=== PATIENT | female | born 1995 | race Caucasian/White ===

== ENCOUNTER → 2016-10-09 | Outpatient (CLI) | payer BC ==
[2016-10-09 18:41] LABS: PREG INTERNAL NEGATIVE QC NEG CLEAR BACKGROUND; PREG INTERNAL POSITIVE QC POS CONTROL LINE
== END | disposition home or self-care (01) ==
LOC: C.LABSPEC 11:47
PROVIDERS: ATTEND Family Medicine
DX: N91.2 Amenorrhea, unspecified (principal)

== ENCOUNTER → 2017-09-25 | Outpatient (CLI) | payer OTHER ==
[2017-09-25 13:36] LABS: ALBUMIN 3.5 gm/dl (3.4-5.0); ALT/SGPT 24 U/L (12-78); AST/SGOT 16 U/L (15-37); BLOOD UREA NITROGEN 7 mg/dl (7-18); CALCIUM 8.6 mg/dl (8.5-10.1); CARBON DIOXIDE 23 mmol/L (21-32); CREATININE 0.58 mg/dl (0.60-1.20); GLUCOSE 84 mg/dl (70-99); SODIUM 138 mmol/L (136-145)
[2017-09-25 13:47] LABS: ALKALINE PHOSPHATASE 83 U/L (45-117); TOTAL PROTEIN 7.7 gm/dl (6.4-8.2)
== END | disposition home or self-care (01) ==
LOC: C.LABSPEC 12:37
PROVIDERS: ATTEND Family Medicine
DX: R42 Dizziness and giddiness (principal)

== ENCOUNTER 2019-06-03 07:36 | Inpatient (IN) ==
[2019-06-03] MEDS ORDERED: OXYTOCIN 30 UNITS/500 ML BAG IV PRN ×2 (09:31→13:49)
[2019-06-03] MEDS ORDERED: LACTATED RINGER'S 1,000 ML IV PRN (09:31)
--- NOTE | 2019-06-03 09:43 | History & Physical Report ---
Date of Service June 03, 2019 Assessment & Plan (1) : 24 yo @ 38w0d, here for induction of labor, complicated by gastric bypass, iron deficiency, hypothyroidism, depression and fetus with IUGR IOL - VSS, SVE: /-2 soft, posterior - GBS - , Blood Type O+ - Pain well controlled - plan for AROM Fetus - IUGR 7%ile @ 32 weeks - good movement - Category 1 tracing Iron deficiency - currently on oral iron - Hgb 10.3 (8/) - check H&H postoperatively (2) Supervision of high risk , antepartum: (3) IUGR (intrauterine growth restriction) affecting care of mother: (4) complicated by previous gastric bypass, antepartum: History of Present Illness Primary Care Provider: Pepito Martinez Ms. Loomis is a 24-year-old . complicated by gastric bypass, IUGR 7%ile @ 32 weeks. She has not had any loss of fluid, she did notice some mucus and blood that started yesterday morning. The bleeding is a mix of bright and dark blood. She has noticed good movement. She is here for planned induction at 38 weeks. She is feeling some of her contractions. Partner's name is Bud. GBS: negative Allergies Allergy/AdvReac Type Severity Reaction Status Date / Time amoxicillin Allergy Verified 06/02/19 11:56 Home Medications Home Medications Medication Instructions Recorded Confirmed Type calcium carbonate PO 03/21/19 06/02/19 History cetirizine 10 mg capsule PO cap 03/21/19 06/02/19 History cyanocobalamin (vit B-12) 1,000 1,000 mcg .ROUTE .COMPLEX PRN ea 03/21/19 06/02/19 History mcg/mL injection kit ferrous gluconate 240 mg (27 mg PO tab 03/21/19 06/02/19 History iron) tablet folic acid 800 mcg tablet PO tab 03/21/19 06/02/19 History Patient History Medical History complicated by previous gastric bypass, antepartum (Acute) Shingles 2010 Spitz nevus of right thigh 02/2019 H/O arthritis H/O: depression H/O: hypothyroidism History of varicella Surgical History S/P LEEP of cervix S/P gastric bypass S/P tonsillectomy S/P wisdom tooth extraction Family History Grandfather (Maternal) Heart disease Unknown Breast cancer Grandmother (Maternal) Osteoporosis Social History Preferred Language: Tongan Communication Ability: Effective Beliefs That Will Affect Care: None marital status: Single Current Living Situation: Significant Other Current Living Situation Comment: Fide's mother Other Information That Helps Us Care for You: No Feels Safe at Home: Yes Safety Concerns: Feels Safe At This Time Smoking Status: Never smoker Hx Alcohol Use: No Hx Substance Use: No Review of Systems Denies fever, chills, sweats Denies shortness of breath, difficulty breathing, chest pain, palpitations, chest pressure. Denies breast pain. Denies dysuria. Denies headache. Physical Exam Physical Exam: General: Alert, oriented. No acute distress. Cardiac: Regular rate and rhythm, no murmurs/rubs/gallops. Respiratory: Clear to auscultation anterior and posteriorly, no wheeze s/rales/rhonchi. No increased work of breathing. Symmetrical chest rise. No respiratory distress. Abdomen: Soft, nontender, nondistended. Bowel sounds present. Lower Extremities: No lower extremity edema or swelling. No deep calf pain. Allegra's negative bilaterally SVE: 4/90/-2 soft, posterior, EFW 5-6 lbs Results & Data Vital Signs (Past 12 Hours) Vital Signs Temp Pulse Resp BP 06/03/19 07:50 36.7 C 20 06/03/19 07:48 109 H 108/74 Monitoring External Monitor - baseline HR 150 - no late decelerations, no variable decelerations - category 1 tracing Tocodynamometer - contractions approximately every 5-10 minutes - approximately 80 MVU Supervising Physician Co-Signing Physician Notes Resident Physician Supervision Note: I interviewed and examined the patient. Discussed with Dr. Alexa Ruff PGY-1 and agree with findings and plan as documented in the note. Any exceptions or clarifications are listed here: [None] Documented By: Ana Luo MD, FACOG Resident Activity Tracking Resident Involvement: Resident Care Provided Care Provided: Adult Hospital Medicine
[2019-06-03 10:02] LABS: Hematocrit (blood only) 36.1 % (37-47); Hemoglobin 11.3 g/dL (12.0-16.0); Mean Corpuscular Hemoglobin 25.6 pg (25-34); Mean Corpuscular Volume 81.9 fL (80-100); Mean Platelet Volume 10.7 fL (7.4-10.4); Platelet Count 330 K/uL (130-400); RDW Coefficient of Variation 20.6 % (11.5-14.5); RDW Standard Deviation 57.4 fL (36.4-46.3); Red Blood Count 4.41 M/uL (4.2-5.4); White Blood Count 6.76 K/uL (4.8-10.8)
[2019-06-03 10:06] LABS: Mean Corpuscular Hgb Conc 31.3 g/dL (32-36)
[2019-06-03] MEDS ORDERED: OXYCODONE/ACETAMINOPHEN 5mg/325mg TAB PO PRN (13:49)
[2019-06-03] MEDS ORDERED: BENZOCAINE 20% AER SPR 82.5 GM CAN EXT PRN (13:49)
[2019-06-03] MEDS ORDERED: HYDROCORTISONE ACETATE 25 MG SUPP PR PRN (13:49)
[2019-06-03] MEDS ORDERED: bisacodyL 10 MG SUPP PR PRN (13:49)
[2019-06-03] MEDS ORDERED: DIPHTHERIA/TETANUS/PERTUSSIS 0.5 ML SYR/VIAL IM ONE (13:49)
[2019-06-03] MEDS ORDERED: SUPERCREAM 0.870% 15 GM JAR EXT PRN (13:49)
[2019-06-03] MEDS ORDERED: ACETAMINOPHEN 325 MG TAB PO PRN (13:49)
--- NOTE | 2019-06-03 14:32 | Delivery Summary ---
DATE OF OPERATION: 06/03/2019 The patient is a 24-year-old 2, para 0-0-1-0 white female who has an EDC of 06/17/2019, who presents at 38 weeks for induction of labor because of IUGR first discovered at 32 weeks' gestation. She presented to labor and delivery at 4 cm dilated and 90% effaced. Membranes were ruptured for meconium-stained fluid. She progressed without Pitocin augmentation to full dilation. She pushed effectively over intact perineum for delivery of a viable male . Rest of the was delivered easily and was placed on the mother's abdomen for further attention and drying. There was vigorous crying and the was moving all 4 limbs. The cord was clamped and cut after 30 seconds. After cord blood was obtained, the placenta was expressed intact with a 3-vessel cord. A first-degree perineal laceration was repaired with 3-0 chromic in the usual fashion using 1% lidocaine as an anesthetic. The patient had an unmedicated . Estimated blood loss was 200 mL. Mother and infant were doing well post-delivery. Post- bleeding was controlled with dilute Pitocin. I attest to the content of the Intraoperative Record and any orders documented therein. Any exception s are noted below.
[2019-06-03] MEDS: ACETAMINOPHEN SOL 650 MG/20.3 ML UDC PO PRN ×2 (15:08→21:06)
[2019-06-03] MEDS: DOCUSATE SODIUM SYRUP 100 MG/10 ML UDC PO SCH (19:38)
[2019-06-03] MEDS ORDERED: DOCUSATE SODIUM 100 MG CAP PO SCH (21:00)
[2019-06-04] MEDS: ACETAMINOPHEN SOL 650 MG/20.3 ML UDC PO PRN ×4 (03:50→23:35)
[2019-06-04 06:43] LABS: Hemoglobin 10.3 g/dL (12.0-16.0); Mean Corpuscular Hemoglobin 25.7 pg (25-34); Mean Corpuscular Hgb Conc 31.2 g/dL (32-36); Mean Corpuscular Volume 82.3 fL (80-100); Mean Platelet Volume 10.4 fL (7.4-10.4); Platelet Count 289 K/uL (130-400); RDW Coefficient of Variation 21.3 % (11.5-14.5); RDW Standard Deviation 60.8 fL (36.4-46.3); Red Blood Count 4.01 M/uL (4.2-5.4); White Blood Count 9.43 K/uL (4.8-10.8)
--- NOTE | 2019-06-04 06:46 | Obstetrical Progress Note ---
Date of Service June 04, 2019 Assessment & Plan (1) : 24 yo @ 38w0d s/p VD @ 38w1d PPD#1 - GBS - , Blood Type O+ - feels well today. Eating well, voiding well, ambulating well. - Pain well controlled. - Routine post care - After discharge will have [address] Luo. Iron deficiency - currently on oral iron - Hgb 11.3 (06/03) - check H&H today (2) Supervision of high risk , antepartum: (3) IUGR (intrauterine growth restriction) affecting care of mother: (4) complicated by previous gastric bypass, antepartum: Supervising Physician Co-Signing Physician Notes Resident Physician Supervision Note: I was present with Dr. Ruff during the history and exam. I discussed the ca se with the resident and agree with the findings and plan as documented in the note. Any exceptions or clarifications are listed here: [None] Documented By: Ana Luo MD, FACOG Subjective Doing well this morning, bleeding is about the same as a heavy period. Bottle feeding, but trying to give baby some of colostrum. No reported pain. Review of Systems Review of Systems: Denies fever, chills, sweats Denies shortness of breath, difficulty breathing, chest pain, palpitations, chest pressure. Denies breast pain. Denies dysuria. Denies headache. Physical Exam Physical Exam: General: Alert, oriented. No acute distress. Cardiac: Regular rate and rhythm, no murmurs/rubs/gallops. Respiratory: Clear to auscultation anterior and posteriorly, no wh eezes/rales/rhonchi. No increased work of breathing. Symmetrical chest rise. No respiratory distress. Abdomen: Soft, nontender, nondistended. Bowel sounds present. Uterus: Uterine fundus firm, palpable at the umbilicus. Lower Extremities: No lower extremity edema or swelling. No deep calf pain. Allegra's negative bilaterally. Results & Data Vital Signs (Past 12 Hours) Vital Signs Temp Pulse Resp BP Pulse Ox 06/04/19 03:50 37.1 C 87 16 99/66 L 98 06/03/19 22:55 36.7 C 78 16 108/75 99 06/03/19 21:43 37.0 C 86 16 116/76 99 PG Care Time/CCT Total # of Minutes Spent Total Time Spent with Patient: Total time spent is greater than 50% in coordination of care (as documented) at patient's floor/unit and/or counseling patient: Resident Activity Tracking Resident Involvement: Resident Care Provided Care Provided: Adult Hospital Medicine
[2019-06-04] MEDS ORDERED: PRENATAL VITAMIN 1 TAB PO SCH (08:00)
[2019-06-04] MEDS: MULTI VIT W/MINERALS LIQUID 15 ML UDP PO SCH (08:45)
[2019-06-04] MEDS: DOCUSATE SODIUM SYRUP 100 MG/10 ML UDC PO SCH ×2 (08:45→20:23)
[2019-06-04] MEDS ORDERED: bisacodyL 5 MG TABEC PO SCH (20:00)
[2019-06-05 06:31] LABS: Hematocrit (blood only) 31.3 % (37-47); Hemoglobin 9.8 g/dL (12.0-16.0)
[2019-06-05] MEDS: DOCUSATE SODIUM SYRUP 100 MG/10 ML UDC PO SCH (08:37)
[2019-06-05] MEDS: MULTI VIT W/MINERALS LIQUID 15 ML UDP PO SCH (08:37)
[2019-06-05] MEDS: ACETAMINOPHEN SOL 650 MG/20.3 ML UDC PO PRN (08:38)
--- NOTE | 2019-06-05 09:18 | Obstetrical Progress Note ---
Date of Service June 05, 2019 Assessment & Plan (1) Normal vaginal delivery: stable, doing well. ready for d/c home, intructions reviewed. f/u 6 wk pp check, bottle feeding. rh pos/rubella immune. Day #:: 2 Subjective Ambulation: ambulating normally Voiding: no voiding problems Diet Tolerance:: regular diet Lochia:: Small Feeding Type:: bottle feeding no pain issues, bottom sore with certain positions. Physical Exam Constitutional WD/WN, vitals as above Respiratory normal respiratory effort, lungs clear to auscultation Cardiovascular Rate/Rhythm: regular rate and regular rhythm Gastrointestinal (Abdomen) Inspection/Auscultation: abdomen normal to inspection Percussion/Palpation: abdomen soft fundus firm 2 cm below umbilicus Musculoskeletal nt calves no edema Neurologic grossly normal Psychiatric A+Ox3, euthymic affect Results & Data Vital Signs (Past 12 Hours) Vital Signs Temp Pulse Resp BP Pulse Ox 06/05/19 07:10 98.2 F 84 16 110/75 100 06/04/19 23:30 98.1 F 106 H 16 105/70 99
== END 2019-06-05 10:24 | disposition home or self-care (01) | DRG 807 ==
LOC: 4S1 07:36 → 4S2 17:22

== ENCOUNTER 2022-03-11 10:57 | Inpatient (IN) ==
[2022-03-11] MEDS ORDERED: LACTATED RINGER'S 1,000 ML IV PRN (11:11)
[2022-03-11] MEDS ORDERED: OXYTOCIN 30 UNITS/500 ML BAG IV PRN ×2 (11:11→12:47)
--- NOTE | 2022-03-11 11:33 | History & Physical Report ---
Date of Service March 11, 2022 Assessment & Plan (1) Supervision of normal intrauterine in multigravida: Plan: Admit to L&D. Labs/COVID swab. EFM/toco. IV access. Does not desire epidural. Hourly glucose checks d/t GDM. (2) Gestational diabetes: History of Present Illness Chief Complaint: labor Primary Care Provider: Pepito Martinez, DO 27yo @ 39 0/7, presented to office today with ctx that started at 9am. No vaginal bleeding, leaking fluid. + movement. with: Hx. Gastric Bypass *growth scan Q 4 wks starting at 28 wks *check iron, B12, folate, Vit D and calcium every trimester GDM (hx gastric bypass) *Begin monthly AC Us's @24wks Allergies Allergy/AdvReac Type Severity Reaction Status Date / Time amoxicillin Allergy Rash Verified 03/11/22 11:20 Home Medications Medication Instructions Recorded Confirmed Type cetirizine 10 mg capsule PO 03/21/19 03/11/22 History folic acid 800 mcg tablet PO 03/21/19 03/11/22 History multivitamin (Daily Multiple) 1 tab PO DAILY 08/16/19 03/11/22 History cyanocobalamin (vitamin B-12) 1,000 mcg .Route .COMPLEX PRN 03/26/20 03/11/22 History 1,000 mcg/mL injection kit blood-glucose meter (Contour Link) #1 ea 04/17/20 03/11/22 History lancets (Comfort Lancets) #100 ea 04/17/20 03/11/22 History prenat.vits,conrado,ngd-[id number]-nmqnh 1 tab PO DAILY 07/26/21 03/11/22 History ondansetron HCl 4 mg tablet 4 mg PO Q6H PRN nausea and 09/03/21 03/11/22 Rx vomiting #30 tabs acetone (urine) test (Ketone Urine #50 ea 09/16/21 03/11/22 Rx Test) blood sugar diagnostic (Contour #150 ea 09/16/21 03/11/22 Rx Next Test Strips) levothyroxine 125 mcg tablet 125 mcg PO DAILY #90 tabs 02/06/22 03/11/22 Rx breast pump #1 ea 02/11/22 03/11/22 Rx Patient History Medical History (Updated 03/10/22 @ 21:08 by Elzbieta Carreon RN) Essential hypertension Generalized anxiety disorder H/O arthritis H/O: depression H/O: hypothyroidism History of skin cancer removed x3 History of varicella Hypoglycemia after GI (gastrointestinal) surgery Shingles 2011 Spitz nevus of right thigh 02/2019 Surgical History S/P gastric bypass S/P LEEP of cervix S/P tonsillectomy S/P wisdom tooth extraction Family History Grandfather (Maternal) Heart disease Unknown Breast cancer Grandmother (Maternal) Osteoporosis Social History Smoking Status: Never smoker Second Hand Exposure: No; Do You Dip or Chew Tobacco: No; Tobacco Cessation Education Requested by Patient: No Hx Alcohol Use: No Hx Substance Use: No Preferred Language: Czech Communication Ability: Effective Benefits Manager Required: No Beliefs That Will Affect Care: None marital status: Single marital status details: Bud (24) [phone] Current Living Situation: Spouse Current Living Situation Comment: Bud current occupational status: employed current occupation: [employer]. Other Information That Helps Us Care for You: No Feels Safe at Home: Yes Safety Concerns: Feels Safe At This Time Assistive Devices: Glasses Review of Systems All systems reviewed & are unremarkable except as noted in HPI & below Physical Exam Physical Exam: FHT Cat 1 [place] Q 2 SVE 5/100/-[address] Su Constitutional: WD/WN, vitals as above Respiratory: normal respiratory effort, lungs clear to auscultation no respiratory distress Cardiovascular: Rate/Rhythm: regular rate and regular rhythm Gastrointestinal (Abdomen): Inspection/Auscultation: abdomen normal to inspection Percussion/Palpation: abdomen soft; abdomen nontender Gravid. No s/s chorio or abruption. Skin: no rashes, warm and dry Psychiatric: A+Ox3, euthymic affect Results & Data ([facility]) Vital Signs (Past 12 Hours) Vital Signs Temp Pulse Resp BP 03/11/22 11:13 36.7 C 83 20 128/83 03/11/22 11:00 83 128/83 Coding Level of Care Code None Diagnoses Supervision of normal intrauterine in multigravida Z34.80 Gestational diabetes O24.419
[2022-03-11 11:47] LABS: Hematocrit (blood only) 39.4 % (34.1-44.9); Hemoglobin 13.3 g/dl (12.0-16.0); Mean Corpuscular Hemoglobin 30.4 pg (25.0-34.0); Mean Corpuscular Hgb Conc 33.8 g/dL (32.0-36.0); Mean Corpuscular Volume 90.2 fL (80.0-100.0); Mean Platelet Volume 11.1 fL (9.4-12.3); Platelet Count 310 K/uL (130-400); RDW Coefficient of Variation 12.3 % (11.5-14.5); RDW Standard Deviation 40.4 fL (36.4-46.3); Red Blood Count 4.37 M/uL (3.93-5.22); White Blood Count 8.12 K/ul (4.8-10.8)
[2022-03-11] MEDS ORDERED: LIDOCAINE 1% LOCAL 20 ML VIAL ONE (12:12)
--- NOTE | 2022-03-11 12:31 | Delivery Summary ---
Vaginal Delivery Summary Date of Service March 11, 2022 Vaginal Delivery Summary and 1st Degree LAC Vaginal Delivery Summary: Pre-delivery diagnoses: 27yo @ 39 0/7, spontaneous labor, [id number] Post-delivery diagnoses: same Procedure: spontaneous vaginal delivery, repair of 1st degree laceration Surgeon: Tamiko Mtz DO Complications: none Findings: Viable female . Apgars: 7/9. Weight pending, please see nursery records Estimated blood loss: 300ml Description of delivery: The patient arrived in active labor, AROM occurred during cervical exam for thick meconium, and she rapidly progressed to complete without anesthesia. She then began to push. She spontaneously vaginally delivered a viable from the cephalic presentation. The head delivered in [place] position. The anterior shoulder delivered, followed by the posterior shoulder, followed by the body. No nuchal. The baby was placed on mother's abdomen and a spontaneous cry was heard. Delayed cord clamping was employed, and the cord was doubly clamped and cut. Cord blood was obtained. The placenta was delivered spontaneously intact with a 3-vessel cord - ?velamentous insertion? - will send to path for further eval. The uterus and vagina were swept of clots and debris. IV pitocin was given. The uterus became firm. The cervix, vagina, and perineum were inspected and a 1st degree perineal laceration was noted, 1% lidocaine for anesthetic used, and repaired in standard fashion with 3-0 Vicryl. Excellent hemostasis was observed. The mother and baby are recovering in stable and good condition in the room. Sponge, needle and instrument counts were correct x 2. Tamiko Mtz DO [facility] Vaginal Delivery Charge Vaginal Delivery Codes: 45806 global code for the antepartum, delivery, and p ost- Delivery Type Details: and 1st Degree LAC
[2022-03-11] MEDS ORDERED: DIPHTHERIA/TETANUS/PERTUSSIS 0.5 ML SYR/VIAL IM ONE (12:47)
[2022-03-11] MEDS ORDERED: oxyCODONE/ACETAMINOPHEN 5mg/325mg TAB PO PRN (12:47)
[2022-03-11] MEDS ORDERED: IBUPROFEN 600 MG TAB PO PRN (12:47)
[2022-03-11] MEDS ORDERED: HYDROCORTISONE ACETATE 25 MG SUPP PR PRN (12:47)
[2022-03-11] MEDS ORDERED: bisacodyL 10 MG SUPP PR PRN (12:47)
[2022-03-11] MEDS ORDERED: BENZOCAINE 20% AER SPR 82.5 GM CAN EXT PRN (12:47)
[2022-03-11] MEDS ORDERED: Nursing to Pharmacy Communication SCH (13:30)
[2022-03-11] MEDS: ACETAMINOPHEN 325 MG TAB PO PRN (13:35)
[2022-03-11] MEDS ORDERED: DOCUSATE SODIUM 100 MG CAP PO SCH (21:00)
[2022-03-11] MEDS ORDERED: SIMETHICONE 80 MG CHEW PO PRN (21:17)
--- NOTE | 2022-03-12 06:09 | Obstetrical Progress Note ---
Date of Service <Elsa Mir, DO - Last Filed: 03/12/22 06:32> March 12, 2022 Assessment & Plan <Elsa Mir DO - Last Filed: 03/12/22 06:32> (1) Status post vaginal delivery: Plan continue OOB, ambulation, diet as tolerated <Tamikosanjay Mtz, DO - Last Filed: 03/12/22 07:49> (1) Status post vaginal delivery: Subjective <Elsa Mir, DO - Last Filed: 03/12/22 06:32> Emmy is a 27 y/o female who is now PPD # 1 following vaginal delivery at 39 0/7. Reports feeling well overall this morning. Mild abdominal cramping & pain well managed on analgesics. Voiding. Tolerating meals overnight and able to ambulate some. Is passing gas, but no bowel movements. Some persistent lochia with some improvement this morning. Breast feeding. Review of Systems Denies fever, chills, sweats Denies shortness of breath, difficulty breathing, chest pain, palpitations, veto st pressure. Denies breast pain. Denies dysuria. Denies headache or changes in vision. Physical Exam <Esla Mir DO - Last Filed: 03/12/22 06:32> General: Alert, oriented. No acute distress. Cardiac: Regular rate and rhythm, no murmurs/rubs/gallops. Respiratory: Clear to auscultation bilaterally a/p, no wheezes/rales/rhonchi. No increased work of breathing. Symmetrical chest rise. No respiratory distress. Abdomen: Soft, nontender, nondistended. Bowel sounds present. Uterus: Uterine fundus firm, palpable 3 cm below umbilicus. Lower Extremities: No lower extremity edema or swelling. No deep calf pain. Allegra's negative bilaterally. Results & Data ([facility]) <Elsa Mir DO - Last Filed: 03/12/22 06:32> Vital Signs (Past 12 Hours) Vital Signs Temp Pulse Resp BP Pulse Ox O2 Del Method 03/12/22 04:15 36.7 C 70 18 113/77 98 Room Air 03/12/22 00:00 36.8 C 76 16 111/74 98 Room Air 03/11/22 21:00 37.1 C 67 20 113/73 98 Room Air <Tamiko Mtz DO - Last Filed: 03/12/22 07:49> Co-Signing Physician Notes Resident Physician Supervision Note: I interviewed and examined the patient. Discussed with Dr. Mir and agree with findings and plan as documented in the note. Any exceptions or clarifications are listed here: PPD#1 doing well, desires DC home today. Reviewed DC ins tructions, followup 6wPP Documented By: Tamiko Mtz DO Resident Activity Tracking <Elsa Mir, - Last Filed: 03/12/22 06:32> Resident Involvement: Resident Care Provided Care Provided: OB Delivery (Post )
[2022-03-12 06:17] LABS: Hematocrit (blood only) 37.1 % (34.1-44.9); Hemoglobin 12.2 g/dl (12.0-16.0)
[2022-03-12] MEDS ORDERED: LEVOTHYROXINE SODIUM 125 MCG TABLET PO SCH (06:30)
[2022-03-12] MEDS ORDERED: PRENATAL VITAMIN 1 TAB PO SCH (08:00)
[2022-03-12] MEDS: ACETAMINOPHEN 325 MG TAB PO PRN (12:08)
[2022-03-12] MEDS ORDERED: bisacodyL 5 MG TABEC PO SCH (20:00)
== END 2022-03-12 14:16 | disposition home or self-care (01) | DRG 807 ==
LOC: OPB 10:57 → 4S1 10:59 → 4E2 15:33